=== PATIENT | male | born 1990 | race Caucasian/White ===

== ENCOUNTER 2020-11-18 14:29 | Emergency (ER) | payer OTHER ==
[2020-11-18 14:43] VITALS: BP 132/77; PULSE 89; TEMP 98.6; BMI 23.0
== END 2020-11-18 15:09 | disposition home or self-care (01) ==
LOC: FER 14:29
PROC: 2W3QX1Z Immobilization of Right Lower Leg using Splint (ICD-10-PCS; principal; 2020-11-18)
DX: M79.661 Pain in right lower leg (principal); S86.001A Unspecified injury of right Achilles tendon, initial encounter
CPT/HCPCS: 29515; 99284-25